=== PATIENT | male | born 1980 | race Two or more races ===

== ENCOUNTER → 2025-02-08 | Outpatient (CLI) | payer MEDICAID, SELFPAY ==
--- NOTE | 2025-02-08 16:00 | XR_ITS ---
Examination: CT maxillofacial, without intravenous contrast. 2-D sagittal reconstructions. 3-D reconstructions. Date and time of exam:February 08, 2025 1405 hours INDICATIONS: Sinus pressure and pain congestion 9 months CTDI: vol (mGy):9.25 DLP: (mGycm):165 Technique: Multiple axial images of maxillofacial region, 3.0 mm slice thickness. 2-D sagittal and coronal reconstructions. 3-D reconstructions. Low dose protocols were performed. One or more of the following dose reduction techniques were used; automated exposure control, adjustment of the mA and/or KV according to patient size, use of iterative reconstruction technique. Findings: Trace mucosal thickening in the frontal air cells Prominent mucosal thickening ethmoid air cells Partial occlusion of both ostiomeatal complexes Mucosal disease up to 4 mm in the maxillary antra Thickening of the nasal septum Deviation nasal septum to the left 5 mm No cortical bone destruction Symmetrical mastoid aeration No nasopharyngeal mass No visualized cerebral mass IMPRESSION: Chronic sinusitis, most prominent ethmoid air cells.
== END | disposition home or self-care (01) ==
PROVIDERS: PCP Family Medicine; Referring Provider Family Medicine; Visit Provider Family Medicine
DX: J32.8 Other chronic sinusitis (principal)
CPT/HCPCS: 70486